=== PATIENT | female | born 2000 | race Caucasian/White ===

== ENCOUNTER 2023-09-12 07:46 | Emergency (ER) | payer BC, SELFPAY ==
[2023-09-12 07:48] VITALS: BP 124/83; PULSE 76; RESP 16; TEMP 36.3; O2SAT 99; BMI 21.8
--- NOTE | 2023-09-12 08:07 | ED_ITS ---
HPI - Head Injury General Time Seen by Provider: 08:07 Date Seen: 09/12/23 Chief complaint: Head Injury/Pain Stated complaint: Head injury Time Seen by Provider: 09/12/23 08:02 Source: patient and RN notes reviewed Mode of arrival: ambulatory Limitations: no limitations History of Present Illness HPI Narrative: This 23-year-old [employer] [facility] student is ambulatory into the ED of her own accord with complaint of head injury this morning. She was going down the stairs and there was E turn on landing, hit her right forehead on the wall. She states was dark, just did not see the wall. She saw a brief flash of light, had head pain and nausea. No loss of consciousness, has been ambulatory, no vomiting. No history of closed head injury or concussion prior. MD Complaint: head injury and head pain Loss of Consciousness: no Related Data Home Medications Medication Instructions Recorded Confirmed No Known Home Medications 11/03/22 11/03/22 Allergies Allergy/AdvReac Type Severity Reaction Status Date / Time No Known Drug Allergies Allergy Verified 11/03/22 19:12 Review of Systems Narrative: As per HPI. PFSH PFSH Social History Smoking Status: Never smoker How often do you have a drink containing alcohol: monthly or less AUDIT-C Alcohol total score: 1 Non-prescribed substance use: denies use Exam Const: Vital Signs, click to edit/add: Vital Signs - 24 hr 09/12/23 07:48 Temperature 97.4 F L Pulse Rate [Pulse Oximeter] 76 Respiratory Rate 16 Blood Pressure [Ri ght Upper Arm] 124/83 Pulse Oximetry 99 Oxygen Delivery Me thod Room Air Patient is alert, interactive, no apparent distress. Pupils equal round reactive to light, extraocular muscles intact. Do believe she is wearing contacts. Face is symmetrical, speech is normal. No traumatic changes noted to her face or over this right frontal forehead. Do not see any hematoma or wound. Neck is supple, no midline tenderness. Some cerumen in the canals but no drainage, can see posteriorly to normal appearing TMs. She has no tenderness over her jaw. There is no neck masses, no adenopathy, no thyromegaly masses or nodules. She is ambulatory into the ED of her own accord. Strength is 5/5 and symmetric of upper and lower extremities. There is no tremors, no dysmetria. She has normal rapid alternating finger movements, normal heel to moyer. She has normal sensation. Documenting provider has reviewed patient's vital signs: yes Course Course ED Course: Discussed with patient that she certainly has symptoms that could be consistent with a concussion. She has no history of concussion prior. Whether or not she will have any length to these symptoms, I cannot tell her. We have discussed follow-up if she has ongoing concussive symptoms. We did discuss neuro imaging in the setting of head injury. This mechanism and her current symptoms do not support head imaging. She would have increased risk from the radiation affects of the head imaging verses increased benefit. However, we did review of she has worsening symptoms, starts vomiting within the next 24-48 hours of this injury, would recommend re-evaluation here in the ER. She is in agreement with this plan. Vital Signs Vital signs: Initial Vital Signs Temperature 97.4 F L 09/12/23 07:48 Temperature Source Temporal Artery Scan 09/12/23 07:48 Pulse Rate 76 09/12/23 07:48 Respiratory Rate 16 09/12/23 07:48 Blood Pressure 124/83 09/12/23 07:48 Blood Pressure Mean 96 09/12/23 07:48 Blood Pressure Position Sitting 09/12/23 07:48 Pulse Oximetry 99 09/12/23 07:48 Oxygen Delivery Method Room Air 09/12/23 07:48 Vital Signs Temperature 97.4 F L 09/12/23 07:48 Pulse Rate 76 09/12/23 07:48 Respiratory Rate 16 09/12/23 07:48 Blood Pressure 124/83 09/12/23 07:48 Pulse Oximetry 99 09/12/23 07:48 Oxygen Delivery Method Room Air 09/12/23 07:48 Temperature 97.4 F L 09/12/23 07:48 Pulse Rate 76 09/12/23 07:48 Respiratory Rate 16 09/12/23 07:48 Blood Pressure 124/83 09/12/23 07:48 Pulse Oximetry 99 09/12/23 07:48 Oxygen Delivery Method Room Air 09/12/23 07:48 Critical Care Time Critical Care Time Critical Care Time: No Discharge Plan Discharge Clinical Impression: Concussion without loss of consciousness Qualifiers: Encounter type: initial encounter Qualified Code(s): S06.0X0A - Concussion without loss of consciousness, initial encounter Closed head injury Qualifiers: Encounter type: initial encounter Qualified Code(s): S09.90XA - Unspecified injury of head, initial encounter Patient Disposition: Home, Self-Care Condition: Stable Instructions: Concussion (ED), Post Concussion Syndrome (ED) Additional Instructions: Rest when you can, stay hydrated. Can use Tylenol and ibuprofen per bottle directions if needed for any headache or discomfort. If you develop vomiting or increasing headache, worsening symptoms that are concerning to you within the next 24-48 hours of this injury, do recommend re-evaluation. Otherwise, if you have ongoing concussion symptoms that her lasting longer than a few days, do recommend follow up in clinic at school; may need referral to a post concussive facility. Do recommend avoidance of further head injury for the next few weeks or longer if you are having ongoing concussive symptoms. Activity Level: Activity as Tolerated Prescriptions: No Action No Known Home Medications Stand Alone Forms: [employer] Info Instructions
== END 2023-09-12 08:34 | disposition home or self-care (01) ==
LOC: ED 08:32
PROVIDERS: Emergency Provider Family Medicine
DX: S06.0X0A Concussion without loss of consciousness, initial encounter (principal); W10.9XXA Fall (on) (from) unspecified stairs and steps, initial encounter
CPT/HCPCS: 99282; 99283